=== PATIENT | female | born 1960 | race Caucasian/White ===

== ENCOUNTER → 2021-10-26 | Outpatient (CLI) | payer MEDICARE, OTHER, SELFPAY ==
--- NOTE | 2021-10-26 10:05 | PR.ITP_ITS ---
General Information2 - General Information Admitting Diagnosis: PRIMARY PULMONARY HTN, PRE-LUNG TXP @ [facility] Gold Classification:: GOLD 4: Very Severe - PFT FEV1:: 1.43 - 64% predicted FVC:: 2.25 - 79.4% predicted FEV1/FVC%:: 64 - 83% predicted - Personal Learning Style/Barriers Personal Learning Style:: Audio/Visual, Written Barriers to Learning: Vision impaired Stage of change r/t lifestyle modifications: Contemplation Educational Classes CT: Living with Chronic Lung Disease: Initial Assessment, Breathing Retraining: Initial Assessment, Exercise: Initial Assessment, Energy Conservation: Initial Assessment, Airway clearance: Initial Assessment - Education/Goals Individual Counseling: Initial Assessment: Sedentary Lifestyle CT Patient Goals: Increase muscle strength: Initial Assessment, Experience less dyspnea: Initial Assessment, Improve energy level: Initial Assessment, Participate in home exercise: Initial Assessment, Improve the ability to cope with ADLs: Initial Assessment, Improve knowledge of lung disease: Initial Assessment, Understand how to use medications: Initial Assessment, Increase knowledge of oxygen use: Initial Assessment, Control panic/anxiety: Initial Assessment, Improve diet and nutrition: Initial Assessment, Improve my quality of life: Initial Assessment, Reduce Stress/relaxation techniques: Initial Assessment Exercise - Initial Assessment - Visit Date of Eval: 10/26/21 Session Number:: 0 - pre-pulm rehab evaluation - Problem/Goals Problems: Deconditioning, No regular exercise, Knowledge deficit exercise guidelines Goals:: Aerobic exercise 30-60 mins x 12 weeks [36 sessions] - Functional Capacity Test Number of feet walked: 800 Lowest SPO2 %: 93 - Physician Prescribed Exercise Modalities: Treadmill, Airdyne, NuStep Frequency (days/week): 3 Duration (Minutes):: 30-45 Intensity: 60-80% of age predicted maximum heart rate reserve Current METSs:: 2.0 Target HR:: 110 - 94-110 THRR Resting Blood Pressure: 137/48 EKG Type: Sinus Rhythm W/premature atrial complex - Plan Plan and Plan to Review:: Benefits of exercise, Core components of exercise, How to measure dyspnea level, How to monitor dyspnea level, Exercise intensity, Exercise safety guideline, Home exercise guidelines, Anjel: 3-4/11-13 Nutrition/Wt Mgmt - Initial - Visit Date of Eval: 10/26/21 Session Number:: 0 - pre-pulm rehab evaluation - Problems/Goals Goals: BMI 21-25 - Weight Management Admit Height:: 5 ft 1 in Admit Weight:: 103 lb - Risk malnutrition Admit BMI:: 19.4 - Intervention Referral to dietitian:: Yes - Risk Malnutrition Will attend diet classes:: Yes Intervention/Plan: Instruct on ideal BMI & set weight loss goal w/patient - Plan Nutrition Plan: Yes Review BMI or WC & identify target wt & strategies for wt control, Yes Nutrition education class:, Yes Education re: Need for ongoing weight monitoring Psychosocial - Initial Assess - Visit Date of Eval: 10/26/21 Session Number:: 0 - pre-pulmonary rehab evaluation - Problems/Goals History of Emotional Disorders: Anxious, Depression Psychosocial Goals: 1. Patient is free from overwhelming symtoms of depression (or anxiety, 2. Identifies personal stressors & states the strategies for managing, 3. Identifies activities to decrease isolation and/or symptoms of, 4. Improved psychosocial coping skills. Self-reported stressors: Medical/Health - Psychosocial Test Tool Used:: Pulmonary QOL, PHQ-9 Questionnaire - Referral to Behavioral Health PS - Interventions: Yes Attend Stress Management Classes, No Referral to Behavioral Health if PHQ-9 score >9:, No Referral to [facility], No Referral to Physician if PHQ-9 if score is 5-9: - Intervention/Plan: See List Interventions/Plan:: Assess stressors,coping strategies & signs of derpression on admission, Instruct/assist pt to develop coping & personal stress Mgt strategies, Instruct patient to recognize signs & symptoms of depression, Instruct patient to recog Oxygen & Oxygen Titration Init - Visit Date of Eval: 10/26/21 Session Number:: 0 - Pre-pulmonary rehab evaluation - Initial Assessment Oxygen on Admission: Oxygen w/activity - 2 to 3 liters wtih activity, Oxygen at HS SpO2:: 92 Patient Reports:: Non-productive cough - usually in the morning - Goal Oxygen & Oxygen Tritration Goals: Uses O2 as Rx'd/safely - Plans Plan: Monitor SpO2 rest & with exercise, Train appropriate O2 use with exercise Reviewed prescribed medications:: Purpose, Schedule, Side effects, Importance of compliance Instruct correct technique/timing & care:: MDI, DPI, Nebulizer Bronchial Hygiene Plan: Controlled cough, Vibratory PEP device, Role of exercise in secretion clearance, Hydration, Hand hygiene, Signs/symptoms to report: Core Components - Initial - Visit Date of Eval: 10/26/21 Session Number:: 0 - pre-pulmonary rehab evaluation - Hypertension Hypertension Diagnosis:: Hypertension ICD-10 I10 BP: 137/48 [employer] Hypertension Guidelines: [place] [employer] Hypertension Guidelines. Normal BP Less than 120/80. Elevated BP 120/80. Hypertension Stage 1: BP 130-139/80-89. Hypertesnion Stage 2: BP 140 or higher/90 or higher. Hypertension Crisis: BP higher than 180/120 Blood Pressure: 137/48 Outcomes/Goals: Able to verbalize/achieve optimal blood pressure <130/80, Incorporates diet changes & exercise for blood pressure control by DC - Tobacco - Initial Assessment Tobacco Program Goals: Complete smoking cessation. Attend education classes. Improve Knowledge Test score Tobacco Use: Non-smoker Years Smokin Do you use smokeless tobacco?: No Smoking Cessation Referral:: No Individual Education/Counseling:: No Education Schedule Given:: Yes Gave Education Materials For:: Pulmonary Disease, Risk Factors, Breathing Techniques, Medical Compliance, Pulmonary A&P, Exacerbation Signs & Symptoms, Stress & Relaxation - Exacerbation Mgmt & Airway Clearance Problems:: Needs O2 Rx recommendation Hypoxemia Goals:: Hypoxemia managed Bronchial Hygiene Problems:: Respiratory infection Prevention/Management Goals: Pt demonstrates effective cough, effective secretion clearance., Pt describes signs and symptoms of infection. Patient Reports:: Non-productive cough - usually in the morning Plan: Monitor SpO2 rest & with musical instruments assembler correct technique/timing & care:: MDI, DPI, Nebulizer, Return demo use of inhaler Bronchial Hygiene Plan: Controlled cough, Vibratory PEP device, Hydration, Hand hygiene, Signs/symptoms to report: - Medication Medications: Yes MDI, Yes DPI, Yes NEB Reviewed prescribed medications:: Purpose, Schedule, Side effects - Diabetes Diabetes:: No - Heart Failure Ejection fraction %:: 65 Documenting weight daily for CHF: No Core Components - 30 DAYS Core Components - 60 DAYS Core Components - 90 DAYS Core Components - Final Patient Health Questionnaire Initial Assessment 1. Little interest or pleasure in doing things: Several days 2. Feeling down, depressed, or hopeless: Several days 3. Trouble falling or staying asleep, or sleeping too much: Nearly every day 4. Feeling tired or having little energy: Nearly every day 5. Poor appetite or overeating: Nearly every day 6. Feeling bad about yourself -- or that you are a failure or have let yourself or your family down: Several days 7. Trouble concentrating on things, such as reading the newspaper or watching television: Not at all 8. Moving or speaking so slowly that other people could have noticed. Or the opposite - being so fidgety or restless that you have been moving around a lot more than usual: Not at all 9. Thoughts that you would be better off , or of hurting yourself in some way: Not at all How difficult have these problems made it for you to do your work, take care of things at home, or get along with other people?: Very difficult Total Score: 12 Knowledge Questionaire (BCKQ) - Information Information: [place] COPD Knowledge Questionnaire (BCKQ) This questionnaire is designed to find out what you know about your lung problem. It should be completed without help form anyone else. This usually takes between 10 and 20 minutes. Your answers will help us to find out what information you need to help you to understand and manage your lung condition. Casper the morongo which you think is the correct answer. - Questions a. In COPD the word chronic means it is severe: True b. COPD can only be confirmed by breathing tests: Don't know c. In COPD ther is usually gradual worsening over time: Don't know d. In COPD oxygen levels in the blood are always low: Don't know e. COPD is usually in people less than 40 years old: Don't know Felipe than 80% of COPD cases are caused by cigarette smoking: True b. COPD can be caused by occupational dust exposure: Don't know c. Longstanding asthma can develop into COPD: Don't know d. COPD is commonly an inherited disease: Don't know e. Women are less vunerable to the effects of cigarette than men: Don't know a. Swelling of the ankles is common in COPD:: Don't know b. Fatigue [tiredness] is common in COPD: Don't know c. Wheezing is common in COPD: True d. Crushing chest pain is common in COPD: Don't know e. Rapid weight loss is common in COPD: Don't know a. Severe breathlessness prevents travel by air: Don't know b. Breathlessness can be worsened by eating large meals: Don't know c. Breathlessness means that your oxygen levels are low: Don't know d. Breathlessness is a normal response to exercise: Don't know e. Breathlessness is primarily caused by a narrowing of the bronchial tubes: True a. Coughing phlegm is a common symptom in COPD: True b. Clearing phlegm is more difficult if you get dehydrated: Don't know c. Bronchodilator inhalers can help clear phlegm: Don't know d. Phlegm causes harm if swallowed: Don't know e. Clearing phlegm can be assisted by breathing exercises: Don't know a. Chest infections often cause coughing of blood: Don't know b. Chest infection phlegm usually becomes coloured (ylw/grn): True cExerbations (episodes of worsening) can occur in the absence of chest infection: Don't know d. Chest infections are always accompanied by a high temperature: Don't know e. Steroid tablets should be taken whenever there is an exacerbation: Don't know aWalking excercises better than breathing to improve fitness: True b. Exercise should be avoided as it strains the lungs: Don't know c. Exercise can help maintain your bone density: Don't know d. Exercise helps relieve depression: Don't know e. Exercise should be stopped if it makes you breathless: Don't know a. Stopping smoking will reduce the risk of heart disease: Don't know b. Stopping smoking will slow down further lung damage: Don't know c. Stopping smoking is pointless as the damage is done: Don't know d.Stopping smoking usually results in improved lung function: True eNicotine replacement therapy only available on prescription: Don't know a. A flu jab is recommended every year: True b. You can get flu from having a flu jab: Don't know c. You can only have a flu jab if you are 65 or over: Don't know d. A pneumonia jab protects against all forms of pneumonia: Don't know e.You can have a pneumonia jab and a flu job on the same day: Don't know a. Bronchodilators act quickly (within 10 minutes): Don't know b. Both short & long acting bronchodilators can be taken on the same day: Don't know c. Spacers (volumatic,nebuhaler,serochamber)should be dried w/atowel after washing: Don't know d. A spacer device increases the medication to the lungs: Don't know e. Tremor may be a side effect of bronchodilators: Don't know a. To be effective, the course should last at least 10 days: Don't know b. Excessive use of antibiotics can cause resistant bacteria (germs): Don't know c. Antibiotics will clear all chest infections: Don't know d. Antibiotic treatment is necessary for an exacerbation (worsening) however mild: True e. Seek advice if antibiotics cause severe diarrhoea: Don't know a. Steroid tablets help strengthen muscles: Don't know b. Steroid tablets should be avoided if there is a chest infection: Don't know c. The risk of long-term side effects due to steroids is less w/short courses then w/continous treatment: Don't know dIndigestion is common side effect from using steroid tablet: Don't know e. Steroid tablets can increase your appetite: True a. Inhaled steroids should be stopped if you are given steroid tablets: Don't know bSteroid inhalers can be used for rapid relief breathlessnes: True c. Spacer devices reduce the risk of getting thrush in the mouth: Don't know d.Steroid inhaler should be taken before your bronchodilator: Don't know e. Inhaled steroids improve lung function in COPD: Don't know COPD Knowledge Test Total Score:: 8 COPD Assessment Test [CAT] - Questions Never cough = 0, Cough all the time = 5: 1 No phlegm = 0, Chest full of phlegm = 5: 1 No chest tightness = 0, Chest very tight = 5: 0 No breathless w/exertion = 0, Very breathless w/exertion = 5: 4 No limitations w/activity = 0, Very limited w/activity = 5: 4 Confident leaving home = 0, Not at all confident = 5: 1 Sleep soundly = 0, Don't sleep soundly = 5: 1 Lots of energy = 0, No energy at all = 5: 4 Total CAT score:: 16 Self-Efficacy Initial Assessment We would like to know how confident you are in doing certain activities. Please select your confidence level for:: Select your confidence level for the fol [facility] using the scale 1-10 where 1 is not at all confident and 10 is totally confident. Your score is the average of all 6 responses. Fatigue: How confident are you that you can keep the fatigue caused by your disease from interfering with the things you want to do? Select Number: 1 Physical Discomfort or Pain: How confident are you that you can keep the physical discomfort or pain of your disease from interfering with the things you want to do? Select Number: 1 Emotional Distress: How confident are you that you can keep the emotional distress caused by your disease from interfering with the things you want to do? Select Number: 1 Other Symptoms or Health Problems: How confident are you that you can keep other symptoms or health problems from interfering with the things you want to do? Select Number: 1 Different Tasks and Activities: How confident are you that you can do the different tasks and activities needed to manage your health condition so as to reduce your need to see a doctor? Select Number: 1 Medication: How confident are you that you can do things other than just taking medication to reduce how much your illness affects your everyday life? Select Number: 1 Total Score:: 1 Nutrition Survey - Nutrition Survey Initial Have you lost >10 lbs over the past 2 months without trying?: Yes Are you following a special diet at home for diabetes, low fat, or low salt?: No Are you interested in meeting with a dietitian for help understanding your diet?: No Do you eat less than 3 meals a day?: Yes Do you eat fatty meats (mike, sausage, ribs, etc), fried foods, desserts, large amounts of salad dressings, margarine, butter, or cheese most days?: Yes Do you have food allergies? [Enter types in comment field]: No Do you eat in restaurants more than 3 times a week?: No Do you season food with salt, seasoning salt, or garlic salt?: No Do you used canned, boxed, frozen meals, or soups, seasoning packets?: Yes Total Score:: 4
--- NOTE | 2021-10-26 10:06 | PR.HP_ITS ---
History of Present Illness Arrival date:: 10/26/21 - Arrival time:: 10:07 Date of Referral:: 09/24/21 Date of Evaluation: 10/26/21 Referring Physician: DR. PATRICIA ZHENG MD [facility] PULMONARY CRITICAL CARE MEDICINE Primary Diagnosis: SEVERE COPD, PULMONARY HTN PRE-LUNG TXP. History of Present Illness: PULM HTN, COPD, PRE-LUNG TRX @ [facility] PULMONARY CRITICAL MEDICINE mMR Breathless Scale: When is the patient short of breath? Y/N Grade: Description of Breathlessness: 0 I only get breathless with strenuous exercise. 1 I get short of breath when hurrying on level ground or walking up a slight hill. 2 On level ground, I walk slower than people of the same age because of breathless, or have to stop for breath when walking at my own pace. 3 I stop for breath after walking 100 yards or after a few minutes on level ground. 4 I am too breathless to leave the house or I am breathless when dressing. Respiratory Problems: Yes: Fatigue, Able to Speak in Full Sentences, Dizziness, Hoarseness, Anxiety, Dyspnea at Rest, Dyspnea with Activity No: Limited Range of Motion, Wheezing, Dyspnea Lying Down Flat, Cough with Secretions - Secretions Thin:: Yes Cough:: Yes AM: Yes Hx of Sleep Apnea: No Do you snore loudly (louder than talking or can be heard through closed doors)?: Yes Do you often feel tired/ fatigued/ sleepy during daytime?: Yes Has anyone observed you stop breathing during sleep?: No History of Hypertension (for STOP score): Yes STOP Results: Positive Home Medications: Home Medications acetaminophen [Tylenol] 650 mg PO Q6H PRN 10/26/21 albuterol sulfate 2 puff INHALATION Q6H PRN 10/26/21 epoprostenol [Veletri] mg CONTINUOUS IV INFUSION 10/26/21 ferrous sulfate 324 mg PO DAILY 10/26/21 fluticasone propionate 2 spray INTRANASAL DAILY 10/26/21 ibandronate 150 mg PO QMONTH 10/26/21 levothyroxine [Synthroid] 75 mcg PO DAILY 10/26/21 [id number]-vuhqxwmh-gqmppcy [Creon] 1 cap PO TID 10/26/21 ondansetron HCl [Zofran] 4 mg PO Q8H PRN 10/26/21 oxygen-air delivery systems 10/26/21 polyethylene glycol 3350 [Miralax] 17 g PO DAILY 10/26/21 potassium chloride 20 meq PO BID 10/26/21 sildenafil (pulm.hypertension) [Revatio] 20 mg PO TID 10/26/21 tiotropium bromide 2 puff INHALATION DAILY 10/26/21 torsemide 20 mg PO DAILY 10/26/21 trazodone [Desyrel] 100 mg PO QHS 10/26/21 Allergies/Adverse Reactions: Allergies No Known Allergies Allergy (Verified 10/26/21 10:30) Medical Utilization Do you use a peak flow meter at home?: No Do you use a spacer device with your inhalers?: No Number of hospital visits in the last year?: 2 - 30 days at [facility] w/acute pancreatitis; 1 week last month for pancreatitis Do you see your physician on a regular schedule?: Yes How often?: PCP 3months, 3-6 months @[facility], becoming more often Comments:: WIll be at the [facility] for 1-week for testing for pre-transplant list. COming closer to being placed on the list, have been going more often for testing. Advanced Directives - Advanced Directives Power of City Planning Engineer: Yes - POA for Toni would be her Living Will: Yes Advance Directives Information Provided: No Advance Directives on File: No DNR Order?:: No - MOLST See MOLST form: No Past Medical History - Covid-19 Screening Fever: No Unexplained muscle aches: No Current respiratory symptoms: No Upper respiratory infections symptoms: No Gastro-intestinal symptoms: Yes - Acute Pancreatitis Bhd-Wftn-Vzrzvj symptoms: No Has tested positive for COVID-19 in last 30 days: No Date of testin10/26/21 - Have had the two series of the COVID vaccine but not the booster. Had contact w/person w/symptoms or Covid-19 (+) last 14 days: No Has High Risk Exposures ID'd by Health dept/Inf Control team: No 65 years or older:: No Lives in Assisted Living facility:: No Has a chronic lung disease or moderate to severe asthma:: Yes Has a serious heart condition:: No Immunocompromised:: Yes Severely obese (Body Mass Index of 40 or higher):: No Diabetic:: No Has chronic kidney disease undergoing dialysis:: No Has liver disease:: No Medical History: Past Medical History (Last Updated 10/26/21 @ 10:36 by Yobany Mercedes, MADHU, [employer]PARTMENT MANAGER, BS) Anxiety and depression F41.9, F32.A Chronic back pain M54.9, G89.29 Chronic fatigue R53.82 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 Former smoker, stopped smoking many years ago Z87.891 11/14/2020 HFrEF (heart failure with reduced ejection fraction) I50.20 LVEF65% HPTH (hyperparathyroidism) E21.3 Hyperthyroidism E05.90 Pancreatitis, acute K85.90 severe-chronic Pre-transplant evaluation for lung transplant Z01.818 Primary pulmonary hypertension (PPH) I27.0 Raynauds disease I73.00 Surgical History: Past Surgical History (Last Updated 10/26/21 @ 10:59 by Yobany Mercedes, MADHU, [employer] DEPARTMENT MANAGER, BS) History of biopsy Z98.890 breast and lymphnoids History of section Z98.891 History of cholecystectomy Z90.49 - Current/ Previous Services Pulmonary Rehab:: No Social History - Smoking History Smoking Status: Former smoker Years Smokin Packs Smoked per Day: 20 Hx Smoking Cessation Date: 11/13/20 Hx Tobacco Use: Yes Hx Smoking Exposure: Yes - Alcohol Use Alcohol Usage: No - Substance Abuse Hx Substance Use: No - Occupation Occupation (List type of work in comments):: Unemployed - Hobbies, Recreation, Social Activities Hobbies: Other Recreational Activities: I am able to engage in a few activities Functioning ADL/IADL - Current Ability Current Ability: Independent Self-Care (e.g.,grooming, dressing, & bathing), Independent Ambulation, Independent Transfer, Independent Household tasks (e.g., light meal prep, laundry, shopping) - Pt Functioning Prior to Problem Prior Functioning: Self-Care (e.g.,grooming, dressing, & bathing): Independent, Ambulation: Independent, Transfer: Independent, Household tasks (e.g., light meal prep, laundry, shopping): Independent Social Environment - Status Marital Status: - Current Living Arrangements Living Environment:: Spouse - Children How many children do you have?: 1 - 3 Do any of your children live nearby?: Yes - 1/2 hour - Safety Do you feel safe in your surroundings?: Yes - Assistance Do you need any assistance at home?: Friend helps out when needed. Review of Systems Review of Systems: Right click = Denies (Slash). Left click = Reports ([place]omb) Respiratory: Reports: Cough, SOB upon Exertion, Wheezing, Dizziness/Lightheadedness, Fatigue, Sleep, Normal - takes sleep aid at night. Denies: SOB at Rest, Sputum production, Appetite, Normal Is Patient Pain Free?: No Pain Location: back, other - pancreatitis flared-up called Dr. Starr at [facility] for appointment. Pain Level: 02/27 Risk Factor Assessment - Vital Signs Temperature: 97.9 F Pulse Rate: 84 Pulse Rhythm: Regular Respiratory Rate: 18 Pulse Ox: 93 Blood Pressure: 137/48 - Diabetes Nutrition Referral for Diabetes: No - Obesity Height: 5 ft 1 in Weight:: 103 lb Weight in Pounds: 103.0 lbs Weight Source: Stated by Patient Body Mass Index (BMI): 19.4 Nutritional Referral for Obesity: Yes - Referral for Risk of Malnutrition - Physical Activity Physical Inactivity: None - Risk Stratification Risk Guidelines: Lowest Risk: Risk Factor for Smoking, Risk Factor for Dyslipidemia, Risk Factor for Diabetes, Risk Factor for Obesity - Risk of Malnutrition, Risk Factor for Depression, Moderate Risk: Risk Factor for Hypertension, Highest Risk: Risk Factor for Sedentary Lifestyle Motivation - Motivation to Participate On a scale of 1 to 10, how prepared are you to commit to attending program?: 8 What do you see as barriers to successfully being able to complete the program?: chronic back pain and pancreatitis What do you see as the benefits of succesfully completing the program? In other words, what do you hope to get out of participating in the program?: increae stamina, feel better, help with my appetite Are there issues you are dealing with that will interfere with completing the program?: ongoing chronic back pain and pancreatitis Do you have a spouse or signficant other, family or friends who will help support you to complete the program?: yes Diagnostic Data Review - Pulmonary Function Test FEV1:: 1.43 - 64% predicted FVC:: 2.25 - 79.4% predicted FEV1/FVC%:: 64 - 83% predicted Gold Classification: Gold class IV(very severe COPD)with FEV1/FVC <70, FEV1 <30% predicted
[2021-10-26 11:07] VITALS: BP 137/48; PULSE 84; RESP 18; TEMP 36.6; O2SAT 93; BMI 19.4
[2021-10-26 11:55] VITALS: BP 137/48; O2SAT 92; BMI 19.4
== END | disposition home or self-care (01) ==
LOC: PR 10:02
PROVIDERS: PCP Family Medicine
DX: J43.9 Emphysema, unspecified (principal); I27.0 Primary pulmonary hypertension; I50.20 Unspecified systolic (congestive) heart failure

== ENCOUNTER 2021-11-16 13:00 | Outpatient (RCR) | payer MEDICARE, OTHER, SELFPAY | END 2021-11-17 23:59 | LOC: PR 13:00 | PROVIDERS: PCP Family Medicine | DX: I27.20 Pulmonary hypertension, unspecified (principal) | CPT/HCPCS: 97150; G0239 ==

== ENCOUNTER 2021-11-19 07:24 | Outpatient (RCR) | payer MEDICARE, OTHER, SELFPAY ==
--- NOTE | 2021-11-26 07:40 | PR.ITP_ITS ---
Exercise - 30-Day Assessment - Visit Date of Eval: 11/26/21 Session Number:: 4 - Patient has missed 4 sessions to date. - Physician Prescribed Exercise Modalities: Treadmill, NuStep, SciFit Frequency (days/week): 3 Duration (Minutes):: 38 Intensity: 60-80% of age predicted maximum heart rate reserve Aerobic Exercise [30-60 min 3-7x/week]:: Not progressing Anjel-13 Current METSs:: 2.0 Target HR:: 110 - THRR 94-110 Current RPD:: 3 Maximum Exercise HR:: 93 Resting Blood Pressure: 88/58 Maximum Exercise Blood Pressure: 112/72 Minimum SpO2 with exercise: 93 EKG Type: SR to sinus tach w/rare PVCs Current Minutes of Exercise: 38 - Home Exercise Home Exercise:: No Nutrition/Wt Mgmt - 30-Day - Visit Date of Eval: 11/26/21 Session Number:: 4 - Weight Management Weight Assessment:: BMI 21 to 25 Weight Goals Progress:: Progressing Psychosocial - 30-Day - Visit Date of Eval: 11/26/21 Session Number:: 4 - Problems/Goals History of Emotional Disorders: Anxious, Depression Psychosocial Goals: 1. Patient is free from overwhelming symtoms of depression (or anxiety, 2. Identifies personal stressors & states the strategies for managing, 3. Identifies activities to decrease isolation and/or symptoms of, 4. Improved psychosocial coping skills., 5. Verbalizes coping strategies., 6. Adequate treatment of depression., 7. Improved Q.O.L. Self-reported stressors: Medical/Health, Recent Illness - Psychosocial Test Tool Used:: Pulmonary QOL - Plan Interventions/Plan:: Assess stressors,coping strategies & signs of derpression on admission, Instruct/assist pt to develop coping & personal stress Mgt strategies, Instruct patient to recognize signs & symptoms of depression, Instruct patient to recog Core Components - Initial Core Components - 30 DAYS Core Components - 60 DAYS Core Components - 90 DAYS Core Components - Final Patient Health Questionnaire 30-Day Re-eval Assessment 1. Little interest or pleasure in doing things: Several days 2. Feeling down, depressed, or hopeless: Several days 3. Trouble falling or staying asleep, or sleeping too much: Nearly every day 4. Feeling tired or having little energy: Nearly every day 5. Poor appetite or overeating: Nearly every day 6. Feeling bad about yourself -- or that you are a failure or have let yourself or your family down: Several days 7. Trouble concentrating on things, such as reading the newspaper or watching television: Not at all 8. Moving or speaking so slowly that other people could have noticed. Or the opposite - being so fidgety or restless that you have been moving around a lot more than usual: Not at all 9. Thoughts that you would be better off , or of hurting yourself in some way: Not at all How difficult have these problems made it for you to do your work, take care of things at home, or get along with other people?: Very difficult Total Score: 12 Knowledge Questionaire (BCKQ) - Information Information: [place] COPD Knowledge Questionnaire (BCKQ) This questionnaire is designed to find out what you know about your lung problem. It should be completed without help form anyone else. This usually takes between 10 and 20 minutes. Your answers will help us to find out what information you need to help you to understand and manage your lung condition. [place] the [place] which you think is the correct answer. Self-Efficacy Nutrition Survey
[2021-11-26 08:05] VITALS: BP 88/58; O2SAT 93
== END 2021-12-18 23:59 ==
LOC: PR 07:24
PROVIDERS: PCP Family Medicine
DX: I27.20 Pulmonary hypertension, unspecified (principal); Z87.891 Personal history of nicotine dependence
CPT/HCPCS: 97150; G0239

== ENCOUNTER 2021-12-26 15:00 | Outpatient (CLI) | payer MEDICARE, OTHER, SELFPAY ==
--- NOTE | 2021-12-26 15:15 | PET_ITS ---
PROCEDURE: WHOLE BODY PET/CT SCAN, MID SKULL TO MID THIGH REASON FOR EXAM: Squamous cell carcinoma of the vulva, initial staging COMPARISON EXAMINATION: None. TECHNIQUE: Following the intravenous administration of 13.48 mCi of F-18 FDG, multiplanar imaging acquisitions of the neck, chest, abdomen/pelvis to the mid thigh, obtained at 1 hour post radiopharmaceutical administration. Interpretation is with co-registeration of similar anatomic distribution of CT. Findings: Normal and physiologic distribution of radioisotope identified in the expected intensity of the hepatic and splenic parenchyma, urinary tract and gastrointestinal structures. There is gross anatomic distribution of the intracranial contents. INDEX LESION SIZE SUV INTERPRETATION: 1. Focal activity of the perineum measures 1.1 x 1.1 cm on image 245 of series 301 with SUV 12.2, potentially representing soft tissue mass/neoplasm versus urine contamination. 2. Rounded focal induration of the left inguinal region measuring 1.6 x 1.8 cm on image 442 of series 201 with peripheral increased FDG activity (SUV 3.5). 3. Mildly enlarged left iliac chain lymph node measuring 0.8 x 1.2 cm on image 413 of series [address] portion of the exam: Left jugular CEJA catheter is seen with tip extending to the upper right atrium. There are interstitial fibrotic changes of the lungs. No pulmonary nodule/mass. There is no demonstrated pleural abnormality. Heart is mildly enlarged. Moderate volume pericardial effusion. Normal mediastinum. Normal hilar regions. There is prominence of the pulmonary hilar arteries without peripheral pulmonary vascular congestion, suggesting pulmonary hypertension. There is atherosclerotic calcification of the aortic arch with tortuosity and elongation of the aortic arch and descending thoracic aorta. Diffuse dilation of the left more than right intrahepatic bile ducts. There is non-visualization of the gallbladder, which may be secondary to either contraction or a prior cholecystectomy. Normal spleen. There are pancreatic calcifications in the distribution of the ducts consistent with chronic pancreatitis. Normal bilateral adrenal glands. Normal right kidney. Normal left kidney. Normal visualized stomach. Normal small intestine. There are multiple colonic diverticula consistent with diverticulosis. There is non-visualization of the appendix. There is diffuse atherosclerotic calcification of the abdominal aorta, without a demonstrated aneurysm. Normal inferior vena cava. Normal urinary bladder. There are diffuse degenerative changes of the visualized lumbar spine. PET/PET/CT Tumor Base -Thigh Init IMPRESSION: ABNORMAL EXAMINATION. 1. Focal activity of the perineum could relate to patient''s known vulvar neoplasm versus urine contamination. 2. Left iliac chain lymph node meets borderline criteria for viable neoplasm. 3. Rounded focal induration of the left inguinal region with mild FDG activity likely related to patient''s recent joan excisional biopsy. 4. Focal activity of the perineum could relate to patient''s known vulvar neoplasm versus urine contamination. 5. Left more than right intrahepatic biliary dilation, limiting evaluation. Evaluation with ultrasound and/or MRI recommended, if no comparison studies available. 6. Cardiomegaly, moderate pericardial effusion. Pulmonary hypertension. 7. Chronic changes, as detailed above. Electronically Signed: Stephan Mckeon MD ([place]) at 15:03 EDT ,
== END 2021-12-26 23:59 | disposition home or self-care (01) ==
LOC: ONC 15:01 → RAO 12-31 13:30
PROVIDERS: PCP Family Medicine
DX: C53.8 Malignant neoplasm of overlapping sites of cervix uteri (principal)
CPT/HCPCS: 78815; A9552

== ENCOUNTER 2022-02-15 10:36 | Day surgery (SDC) | payer MEDICARE, OTHER, SELFPAY ==
[2022-02-15] VITALS (7 sets, daily range): BP systolic 94–131; BP diastolic 54–68; PULSE 59–77; RESP 16–20; TEMP 36.8–37.3; O2SAT 93–100; BMI 20.4
[2022-02-15] MEDS: Lactated Ringers 1,000 ML 15 ML IV (11:10)
--- NOTE | 2022-02-15 12:12 | HP.PCM_ITS ---
History and Physical Date of Admission: 02/15/22 Date of Service:? 02/12/22 MR#:[id number] Acct:[id number] Name:SCOTTY ANGEL Rep #:[id number] :1960 ProviderDr. Brandy Luna MD Age/Sex:? 61/F Location: [facility] Status: Signed Intake Vital Signs ? 02/12/2209:56 Height 5 ft 1 in Weight: 112 lb BMI 21.1 BP 90/56 L Blood Pressure Location Rt brachial Position Sitting Respiration 16 Pulse 69 Pulse Source Monitor Temp 97.2 F L Temp Source Temporal Pulse Oximetry (%) 97 Oxygen Delivery Method room air Intake Visit Reasons:?PORT PLACEMENT Chief Complaint: Port placement Boots And Shoes Supervisor Required: No Accompanied by: Allergies No Known Allergies Allergy (Verified 02/13/22 11:20) Medications acetaminophen 325 mg tablet (Tylenol) 650 mg PO Q6H PRN Pain 10/26/21 [History Confirmed 02/13/22] albuterol sulfate 90 mcg/actuation aerosol inhaler 2 puff inhalation Q6H PRN Dyspnea 10/26/21 [History Confirmed 02/13/22] epoprostenol 1.5 mg intravenous solution (Veletri) 1.5 mg continuous IV infusion DAILY PULMONARY HTN 10/26/21 [History Confirmed 02/13/22] ferrous sulfate 324 mg (65 mg iron) tablet,delayed release 324 mg PO DAILY 10/26/21 [History Confirmed 02/13/22] ibandronate 150 mg tablet 150 mg PO QMONTH 10/26/21 [History Confirmed 02/13/22] levothyroxine 75 mcg tablet (Synthroid) 75 mcg PO DAILY 10/26/21 [History Confirmed 02/13/22] ondansetron HCl 4 mg tablet 4 mg PO Q8H PRN Nausea And Vomiting 10/26/21 [History Confirmed 02/13/22] oxygen-air delivery systems? 10/26/21 [History Confirmed 02/12/22] potassium chloride 20 mEq tablet,extended release 20 meq PO BID 10/26/21 [History Confirmed 02/13/22] torsemide 20 mg tablet 20 mg PO DAILY 10/26/21 [History Confirmed 02/13/22] sertraline 50 mg tablet 50 mg PO DAILY 12/31/21 [History Confirmed 02/13/22] amitriptyline 25 mg tablet 25 mg PO PRN PRN Sleep 01/07/22 [History Confirmed 02/13/22] oxycodone 5 mg tablet 5 mg PO Q6H PRN Pain 01/07/22 [History Confirmed 02/13/22] methocarbamol 500 mg tablet 500 mg PO TID 02/13/22 [History Confirmed 02/13/22] PFSH Medical History?(Updated 02/13/22 @ 17:[address] Sohail Raza MD) Acute hypotension Alcohol use Anxiety and depression Arthritis Chronic back pain Chronic cough Chronic fatigue COPD (chronic obstructive pulmonary disease) with emphysema Easy bruising Former smoker, stopped smoking many years ago HFrEF (heart failure with reduced ejection fraction) History of echocardiogram History of pain when walking History of stress test Hospice care patient HPTH (hyperparathyroidism) Hyperthyroidism Low iron Marijuana use Menopause On home oxygen therapy Pancreatitis, acute Pre-transplant evaluation for lung transplant Primary pulmonary hypertension (PPH) Pulmonary hypertension Rash Raynauds disease Shortness of breath on exertion Vulvar lesion Wears dentures Wears glasses Wears hearing aid Surgical History? History of biopsy History of section History of cholecystectomy History of dilation and curettage History of tooth extraction Family History? Mother Small cell lung cancerFather Lung cancer Social History? Smoking Status:? Former smoker quit date: 11/14/20 Tobacco: How many years used:? 30 how long ago did patient quit smoking:? 1 year alcohol intake:? never substance use type:? does not use HPI HPI HPI: SCOTTY SEWELL, is a 61 F who presents to the office today for Port placement for vulvar cancer.? Pt has had a beltran catheter for last 26 years mostly RIJ until the last one for her pulmonary HTN medication infusion.? Pt has poor peripheral veins. Plan to start chemo, next friday. ROS General General: Yes weight change and fatigue; No appetite, colon cancer or breast cancer HEENT HEENT: No difficulty swallowing, eye injury, eye surgery, swollen glands or hoarseness Endo Endocrine: Yes thyroid disease; No diabetes mellitus, thyroid cancer, Hair loss, heat intolerance or cold intolerance Skin Skin: Yes rash; No changing moles Musc Musculoskeletal: Yes back problems and arthritis; No rheumatoid arthritis, gout or joint pain Cardio Cardiovascular: No murmur, pacemaker, heart disease, atrial fibrillation, high blood pressure, heart attack, heart stent, palpitations, shortness of breat with exertion or chest pain Psych Psychiatric: No depression, anxiety or hearing voices Resp Respiratory: Yes shortness of breath, No sleep apnea, No cough, Yes COPD, No asthma, No emphysema and No wheezing Gastro Gastrointestinal: No abdominal pain, No nausea or vomiting, Yes diarrhea, No constipation, No blood in stool, No acid reflux, No hemorrhoids, No ulcers, No gallbladder problem and No black,tarry stools Edi Hematologic: No blood thinners, No blood disorders, No bleeding, No anemia and No blood clots Neuro Neurologic: No confusion Exam Const General: cooperative, healthy appearing and no acute distress HENMT Head: normal to inspection Chest Other: Left chest beltran catheter in place--well healed previous incisions/scars to right chest. Resp Effort & Inspection: normal respiratory effort Cardio Rate: regular rate GI Inspection: non-distended Palpation: soft, no guarding, no hernias and nontender Skin General: no rashes or lesions noted Neuro General: patient oriented x3 Extrem General: no clubbing, cyanosis or edema Psych Affect: normal affect Assessment and Plan Assessment and Plan (1) Encounter for insertion of venous access port: ?Status:?Acute (2) Primary vulvar cancer: ?Status:?Acute ?Comment: Vulvar cancer diagnosed with at at least FIGO stage II (cT2 N0 M0) SCC of the vulva? S/P biopsy at [facility] on 02/04/2022. Discussed disease status, treatment with Cisplatin weekly with Radiation since she cannot have surgery. Also discussed risks, benefits and side effects. She agrees to proceed. (3) Primary pulmonary hypertension (PPH): ?Status:?Acute Plan Due to patient's primary pulmonary hypertension she has had multiple Beltran catheters over the last 26 years most of been on the right this time they did switch to the left IJ. I have discussed above with the patient- Port-a-Cath placement.? Right IJ Patient has been counseled as to the risks/benefits of the procedure. I have explained the risks of the surgery, including but not limited to: infection, bleeding, injury to any blood vessels/nerves, injury to lungs (such as pneumothorax or hemothorax and need for chest tube), not having any access, nonfunctioning of port due to thrombosis, infection of port, etc.? the patient understands and agrees to proceed. I have answered all the patient's questions to the patient?s satisfaction and the patient has no further questions. Brandy Luna M.D. Pager: [phone] [facility] [address] [place] [address], [address] [place] [address] Office: [phone] Coding Level of Care Code Off vis,new,level 3 Diagnoses Encounter for insertion of venous access port? Z45.2 Primary vulvar cancer? C51.9 Primary pulmonary hypertension (PPH)? I27.0 02/14/22 1558 <Electronically signed by Brandy Luna MD> Date Brandy Luna MD
[2022-02-15] MEDS: Cefazolin 2 GM in 0.9% Normal Saline 100 ML IV (13:19)
[2022-02-15] MEDS: Bupivacaine 0.25% 30 ML Vial (13:35)
[2022-02-15] MEDS: Lidocaine 1% /Epi 1:100 (20ml) 20 ML Vial (13:35)
[2022-02-15] MEDS: oxyCODONE 5 MG Tablet 10 MG PO (14:10)
--- NOTE | 2022-02-15 14:18 | PCM.OPRPT ---
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 Able to gain access to the internal jugular, however unable to advance guidewire past this junction. Then we used Isovue 300--7 cc and saw that there is a chronic occlusion. thus we did switch to try to access the subclavian however the micropuncture kit did show the wire going in the same location and backup the neck. Surgeon: Brandy Luna director of analytical development: Daljit Quintanilla Type of Anesthesia: Local MAC Anesthesiologist: Nadeem Das Special Medications: Ancef 2 g IV x1 Estimated Blood Loss (mL): < 10 cc Description of Procedure: After informed consent was given, the patient was brought to the operating room and placed in the supine position. Appropriate time out protocol was followed. Patient was then given IV conscious sedation for anesthesia. The patient's right upper chest and neck were then prepped with a surgical skin preparation and sterile surgical drapes were placed. After proper landmarks were ascertained, the skin at the upper right chest area was then infiltrated with 1:1 mixture of 1% lidocaine with epinephrine and 0.5% marcaine. A needle trocar was then inserted into the right internal jugular vein with ultrasound guidance-multiple vessels were viewed with u/s and the right IJ was chosen as patient has a left IJ Carrero catheter-- and there was good aspiration of venous blood. A wire was then threaded into the needle trocar however a little ways after the needle and did hit resistance. Fluoroscopy was used to confirm the wires coming back of the neck. Did attempt to use a lower site on the neck to see if this be able to go any different tracks. Still unable to pass the wire. About 7 cc of Isovue-300 was used and found to have a chronic occlusion at the distal right internal jugular. Did then attempt right subclavian with a micropuncture needle. Did get good blood return, was able to initially advance the micropuncture wire but fluoroscopy showed it going up into the neck. Likely this was in the same area and also hit the chronic occlusion. Aborted the port placement. The neck incisions were reapproximated with interrupted subdermal 3-0 vicryl sutures. Steristrips were used for reinforcement of the skin closure at IJ insertion site and a sterile opsite dressings were applied. Also put a pressure dressing at the micropuncture subclavian site. The patient tolerated the procedure well. Complications none
--- NOTE | 2022-02-15 14:30 | RAD_ITS ---
STUDY: X-RAY CHEST REASON FOR EXAM: Female, 61 years old. Attempted RIJ port -- pacu TECHNIQUE: Single AP portable view of the chest. COMPARISON: None. FINDINGS: A left-sided subclavian catheter has been placed. The tip is at the junction of the superior vena cava and right atrium. The lungs are clear and expanded. There is no demonstrated pleural abnormality. Moderate cardiomegaly. Normal mediastinum and dalia. There is prominence of the pulmonary hilar arteries without peripheral pulmonary vascular congestion, suggesting pulmonary hypertension. There is atherosclerotic calcification of the aortic arch with tortuosity. There are diffuse degenerative changes of the visualized thoracic spine. Normal visualized ribs, clavicles, and shoulders. There is no demonstrated abnormality of the visualized soft tissue structures of the upper abdomen. RAD/CXR for Line Placement IMPRESSION: A left-sided subclavian catheter has been placed with the tip at the junction of the superior vena cava and right atrium. Electronically Signed: Attila May MD at 14:48 EDT ,
--- NOTE | 2022-02-15 14:31 | DCINST_ITS ---
Discharge Instructions Diet Discharge Diet: No restrictions Dressing / Incision Call your doctor if your incision/area has: Continuous Slow Oozing, Sudden Increased Bleeding, Increased Pain/ Swelling and Increased Redness Remove Dressing in: 2 days Follow Up Care Test Results: Test results from this visit will be discussed in further detail at your follow- up appointment, if applicable. Discharge Plan Admission Attending Provider: Brandy Luna Primary Care Provider: Datne Starr Discharge Orders/Prescriptions Prescriptions: No Action sertraline 50 mg tablet 50 mg PO DAILY amitriptyline 25 mg tablet 25 mg PO PRN PRN (Reason: Sleep) oxycodone 5 mg tablet 5 mg PO Q6H PRN (Reason: Pain) albuterol sulfate 90 mcg/actuation Hfa Aerosol Inhaler 2 puff INHALATION Q6H PRN (Reason: Dyspnea) (DME) oxygen-air delivery systems Device MISCELLANEOUS acetaminophen [Tylenol] 325 mg Tablet 650 mg PO Q6H PRN (Reason: Pain) torsemide 20 mg Tablet 20 mg PO DAILY ondansetron HCl [Zofran] 4 mg Tablet 4 mg PO Q8H PRN (Reason: Nausea And Vomiting) levothyroxine [Synthroid] 75 mcg Tablet 75 mcg PO DAILY ibandronate 150 mg Tablet 150 mg PO QMONTH ferrous sulfate 324 mg (65 mg iron) Tablet,Delayed Release (Dr/Ec) 324 mg PO DAILY epoprostenol [Veletri] 1.5 mg Recon Soln 1.5 mg CONTINUOUS IV INFUSION DAILY potassium chloride 20 mEq Tablet Extended Release 20 meq PO BID methocarbamol 500 mg Tablet 500 mg PO TID diazepam 5 mg tablet 1 tab PO DAILY PRN (Reason: Anxiety) Label Comments: TAKE 1 TABLET BY MOUTH DAILY BEFORE RADIATION THERAPY (TAKE 30 TO 60 MINUTES BEFORE APPOINTMENT) DO NOT DRIVE FOR 4 HOURS AFTER DOSE Referrals / Follow Up: Dante Starr MD [Primary Care Provider] - Disposition Disposition (needs filled in before D/C Order can be placed): Home, Self Care
== END 2022-02-15 15:39 | disposition home or self-care (01) ==
LOC: SDC 10:37 → AC 10:38
PROVIDERS: PCP Internal Medicine; Referring Provider Surgery; Visit Provider Surgery
PROC: (CPT 36561; principal; 2022-02-15 12:45)
DX: Z45.2 Encounter for adjustment and management of vascular access device (principal); C51.9 Malignant neoplasm of vulva, unspecified; I27.0 Primary pulmonary hypertension; Z53.8 Procedure and treatment not carried out for other reasons; I82.C21 Chronic embolism and thrombosis of right internal jugular vein; J43.9 Emphysema, unspecified; F32.A Depression, unspecified; F41.9 Anxiety disorder, unspecified; Z78.0 Asymptomatic menopausal state; Z79.01 Long term (current) use of anticoagulants; Z79.890 Hormone replacement therapy; Z79.899 Other long term (current) drug therapy; Z87.891 Personal history of nicotine dependence
CPT/HCPCS: 36561; 71045; 77001; J7120

== ENCOUNTER 2022-02-20 11:53 | Day surgery (SDC) | payer MEDICARE, OTHER, SELFPAY ==
[2022-02-19 08:59] VITALS: BMI 21.1
[2022-02-20] VITALS (7 sets, daily range): BP systolic 80–97; BP diastolic 38–66; PULSE 70–90; RESP 16–20; TEMP 36.6–36.8; O2SAT 95–100; BMI 20.5
[2022-02-20] MEDS: Cefazolin 2 GM in 0.9% Normal Saline 100 ML IV (13:00)
--- NOTE | 2022-02-20 13:23 | HP.PCM_ITS ---
History and Physical Date of Admission: 02/20/22 History and Physical Date of Admission: 02/15/22 Date of Service:? 02/12/22#:[id number] Acct:[id number] Name:SCOTTY ANGEL Rep #:[id number] :1960 ProviderDrHenrik Luna MD Age/Sex:? 61/F Location: [facility] [place] Status: Signed Intake Vital Signs ?? 02/12/2209:56 Height? 5 ft 1 in Weight:? 112 lb BMI? 21.1 BP? 90/56 L Blood Pressure Location? Rt brachial Position? Sitting Respiration? 16 Pulse? 69 Pulse Source? Monitor Temp? 97.2 F L Temp Source? Temporal Pulse Oximetry (%)? 97 Oxygen Delivery Method? 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 Purification Required: No Accompanied by: Allergies No Known Allergies Allergy (Verified 02/13/22 11:20) Medications acetaminophen 325 mg tablet (Tylenol) 650 mg PO Q6H PRN Pain 10/26/21 [History Confirmed 02/13/22] albuterol sulfate 90 mcg/actuation aerosol inhaler 2 puff inhalation Q6H PRN Dyspnea 10/26/21 [History Confirmed 02/13/22] epoprostenol 1.5 mg intravenous solution (Veletri) 1.5 mg continuous IV infusion DAILY PULMONARY HTN 10/26/21 [History Confirmed 02/13/22] ferrous sulfate 324 mg (65 mg iron) tablet,delayed release 324 mg PO DAILY 10/26/21 [History Confirmed 02/13/22] ibandronate 150 mg tablet 150 mg PO QMONTH 10/26/21 [History Confirmed 02/13/22] levothyroxine 75 mcg tablet (Synthroid) 75 mcg PO DAILY 10/26/21 [History Confirmed 02/13/22] ondansetron HCl 4 mg tablet 4 mg PO Q8H PRN Nausea And Vomiting 10/26/21 [History Confirmed 02/13/22] oxygen-air delivery systems? 10/26/21 [History Confirmed 02/12/22] potassium chloride 20 mEq tablet,extended release 20 meq PO BID 10/26/21 [History Confirmed 02/13/22] torsemide 20 mg tablet 20 mg PO DAILY 10/26/21 [History Confirmed 02/13/22] sertraline 50 mg tablet 50 mg PO DAILY 12/31/21 [History Confirmed 02/13/22] amitriptyline 25 mg tablet 25 mg PO PRN PRN Sleep 01/07/22 [History Confirmed 02/13/22] oxycodone 5 mg tablet 5 mg PO Q6H PRN Pain 01/07/22 [History Confirmed 02/13/22] methocarbamol 500 mg tablet 500 mg PO TID 02/13/22 [History Confirmed 02/13/22] PFSH Medical History?(Updated 02/13/22 @ 17:[address] Sohail Raza MD) Acute hypotension Alcohol use Anxiety and depression Arthritis Chronic back pain Chronic cough Chronic fatigue COPD (chronic obstructive pulmonary disease) with emphysema Easy bruising Former smoker, stopped smoking many years ago HFrEF (heart failure with reduced ejection fraction) History of echocardiogram History of pain when walking History of stress test Hospice care patient HPTH (hyperparathyroidism) Hyperthyroidism Low iron Marijuana use Menopause On home oxygen therapy Pancreatitis, acute Pre-transplant evaluation for lung transplant Primary pulmonary hypertension (PPH) Pulmonary hypertension Rash Raynauds disease Shortness of breath on exertion Vulvar lesion Wears dentures Wears glasses Wears hearing aid Surgical History? History of biopsy History of section History of cholecystectomy History of dilation and curettage History of tooth extraction Family History? Mother Small cell lung cancerFather Lung cancer Social History? Smoking Status:? Former smoker quit date: 11/14/20 Tobacco: How many years used:? 30 how long ago did patient quit smoking:? 1 year alcohol intake:? never substance use type:? does not use HPI HPI HPI: SCOTTY SEWELL, is a 61 F who presents to the office today for Port placement for vulvar cancer.? Pt has had a beltran catheter for last 26 years mostly RIJ until the last one for her pulmonary HTN medication infusion.? Pt has poor peripheral veins. Plan to start chemo, next friday. ROS General General: Yes weight change and fatigue; No appetite, colon cancer or breast cancer HEENT HEENT: No difficulty swallowing, eye injury, eye surgery, swollen glands or hoarseness Endo Endocrine: Yes thyroid disease; No diabetes mellitus, thyroid cancer, Hair loss, heat intolerance or cold intole sherrell Skin Skin: Yes rash; No changing moles Musc Musculoskeletal: Yes back problems and arthritis; No rheumatoid arthritis, gout or joint pain Cardio Cardiovascular: No murmur, pacemaker, heart disease, atrial fibrillation, high blood pressure, heart attack, heart stent, palpitations, shortness of breat with exertion or chest pain Psych Psychiatric: No depression, anxiety or hearing voices Resp Respiratory: Yes shortness of breath, No sleep apnea, No cough, Yes COPD, No asthma, No emphysema and No wheezing Gastro Gastrointestinal: No abdominal pain, No nausea or vomiting, Yes diarrhea, No constipation, No blood in stool, No acid reflux, No hemorrhoids, No ulcers, No gallbladder problem and No black,tarry stools Edi Hematologic: No blood thinners, No blood disorders, No bleeding, No anemia and No blood clots Neuro Neurologic: No confusion Exam Const General: cooperative, healthy appearing and no acute distress [facility] Head: normal to inspection Chest Other: Left chest beltran catheter in place--well healed previous incisions/scars to right chest. Resp Effort & Inspection: normal respiratory effort Cardio Rate: regular rate GI Inspection: non-distended Palpation: soft, no guarding, no hernias and nontender Skin General: no rashes or lesions noted Neuro General: patient oriented x3 Extrem General: clubbing Psych Affect: normal affect Assessment and Plan Assessment and Plan (1) Encounter for insertion of venous access port: ?Status:?Acute (2) Primary vulvar cancer: ?Status:?Acute ?Comment: Vulvar cancer diagnosed with at at least FIGO stage II (cT2 N0 M0) SCC of the vulva? S/P biopsy at [facility] on 02/04/2022. Discussed disease status, treatment with Cisplatin weekly with Radiation since she cannot have surgery. Also discussed risks, benefits and side effects. She agrees to proceed. (3) Primary pulmonary hypertension (PPH): ?Status:?Acute Plan Due to patient's primary pulmonary hypertension she has had multiple Beltran catheters over the last 26 years most of been on the right this time they did switch to the left IJ. I have discussed above with the patient- Port-a-Cath placement.? Right IJ Patient has been counseled as to the risks/benefits of the procedure. I have explained the risks of the surgery, including but not limited to: infection, bleeding, injury to any blood vessels/nerves, injury to lungs (such as pneumothorax or hemothorax and need for chest tube), not having any access, nonfunctioning of port due to thrombosis, infection of port, etc.? the patient understands and agrees to proceed. I have answered all the patient's questions to the patient?s satisfaction and the patient has no further questions. Brandy Luna M.D. Pager: [phone] [facility] [address] [place] [address], [facility], [address] [place] [address] Office: [phone] Coding Level of Care Code Off vis,new,level 3 Diagnoses Encounter for insertion of venous access port? Z45.2 Primary vulvar cancer? C51.9 Primary pulmonary hypertension (PPH)? I27.0 02/14/22 1558 <Electronically signed by Brandy Luna MD> Date Brandy Luna MD 02/15/22 1213 <Electronically signed by Brandy Luna MD> Cosigner Signature (if applicable): ? CC:? Dr. Dante Starr MD; Dr. Brandy Luna MD~ Signed ADDENDUM by Dr. Brandy Luna MD on 02/15/22 at 1250 Addendum I have re-examined the patient. There are no clinical changes since date of exam. 02/15/22 1250<Electronically signed by Brandy Luna MD> Cosigner Signature (if applicable):? cc:? Dr. Dante Starr MD; Dr. Brandy Luna MD ~* Signed
--- NOTE | 2022-02-20 15:33 | PCM.OPRPT ---
Report of Operation Date of Procedure: 02/20/22 Pre-Operative Diagnosis: z45.2, Vulvar cancer Post-Operative Diagnosis: Same Surgery/Procedure Performed:: Placement of left Brachial arm port Surgeon: Brandy Luna Type of Anesthesia: Local MAC Anesthesiologist: Nadeem Das Special Medications: Ancef 2 g IV x1 Estimated Blood Loss (mL): minimal Description of Procedure: Please see Dr. Garcia's op note for access to the left brachial vein. A wire was then threaded into the angiocath and this was visualized under fluoroscopy to ensure that the wire was in the left left subclavian. Once this was done, then the needle trocar was removed. The dilator with the introducer sheath attached was then placed over the wire into the left brachial vein via the Seldinger technique and this was visualized under fluoroscopy. The dilator and sheath were in proper position as visualized by fluoroscopy. A subcutaneous pocket was then created distal to the catheter insertion site. A transverse skin incision was made after the skin and subcutaneous tissues were infiltrated with local anesthetic. Blunt dissection was then used to create a space large enough for placement of the subcutaneous port. The catheter was then tunneled into the subcutaneous pocket. The wire and dilator were then removed. The catheter was then threaded into the introducer sheath and was positioned with its tip at the junction of the subclavian and superior vena cava as visualized under fluoroscopy?as to avoid the Carrero catheter. The excess catheter was transected. The catheter was then attached to the subcutaneous port using manufacturers guidelines. The catheter was flushed with a heparin saline mixture prior to placement. Hemostasis was carefully controlled with pressure. The port was sutured to the subcutaneous fascia using 2-0 Vicryl suture. The port was then placed in the subcutaneous pocket. The incision were reapproximated with interrupted subdermal 3-0 vicryl sutures. The skin was reapproximated with 3-0 nylon suture in a interrupted fashion. A pressure dressing with sterile opsite was applied. The patient tolerated the procedure well. Grafts/Implants Used: XCELA power injectable port 6.6 Fr REF [id number] Lot [id number] Complications none
--- NOTE | 2022-02-20 15:37 | DCINST_ITS ---
Discharge Instructions Procedure Port-A-Cath Diet Discharge Diet: Light diet - advance as tolerated Activity May shower in (days): 5 (Keep port site clean and dry x5 days. okay to tape off port site with a Ziploc bag to shower) Lifting Restrictions: No lifting > 15 pounds for 3 days with the arm on the left arm Dressing / Incision Call your doctor if your incision/area has: Continuous Slow Oozing, Sudden Increased Bleeding, Increased Pain/ Swelling, Increased Redness, Foul Smelling Discharge and Swelling at the incision site Call your doctor if you observe: Fever of 101 or Higher Change Dressing in: 2 days Follow Up Care Please Follow Up With: Brandy Luna MD When: In 10 days for permanent suture removal?call office for appointment Test Results: Test results from this visit will be discussed in further detail at your follow- up appointment, if applicable. Discharge Plan Admission Attending Provider: Brandy Luna Primary Care Provider: Dante Starr Consulting Providers: Levi Garcia Discharge Orders/Prescriptions Prescriptions: New rivaroxaban 10 mg tablet MDD 10 mg PO daily 0RF Continued sertraline 50 mg tablet 50 mg PO DAILY amitriptyline 25 mg tablet 25 mg PO PRN PRN (Reason: Sleep) oxycodone 5 mg tablet 5 mg PO Q6H PRN (Reason: Pain) albuterol sulfate 90 mcg/actuation Hfa Aerosol Inhaler 2 puff INHALATION Q6H PRN (Reason: Dyspnea) (DME) oxygen-air delivery systems Device MISCELLANEOUS acetaminophen [Tylenol] 325 mg Tablet 650 mg PO Q6H PRN (Reason: Pain) torsemide 20 mg Tablet 20 mg PO DAILY ondansetron HCl 4 mg Tablet 4 mg PO Q8H PRN (Reason: Nausea And Vomiting) levothyroxine [Synthroid] 75 mcg Tablet 75 mcg PO DAILY ibandronate 150 mg Tablet 150 mg PO QMONTH ferrous sulfate 324 mg (65 mg iron) Tablet,Delayed Release (Dr/Ec) 324 mg PO DAILY epoprostenol [Veletri] 1.5 mg Recon Soln 1.5 mg CONTINUOUS IV INFUSION DAILY potassium chloride 20 mEq Tablet Extended Release 20 meq PO BID methocarbamol 500 mg Tablet 500 mg PO TID diazepam 5 mg tablet 1 tab PO DAILY PRN (Reason: Anxiety) Label Comments: TAKE 1 TABLET BY MOUTH DAILY BEFORE RADIATION THERAPY (TAKE 30 TO 60 MINUTES BEFORE APPOINTMENT) DO NOT DRIVE FOR 4 HOURS AFTER DOSE Referrals / Follow Up: Dante Starr MD [Primary Care Provider] - Levi Garcia MD [Med Staff - Active Staff] - (call for appt in 1 week) Disposition Disposition (needs filled in before D/C Order can be placed): Home, Self Care
[2022-02-20] MEDS: oxyCODONE 5 MG Tablet 10 MG PO (15:52)
--- NOTE | 2022-02-20 15:53 | SUR.PHASEI ---
PER MD PT CAN EAT AND DRINK, OR [employer]FFICIENT FOR PLACEMENT VERIFICATION PER MD VERBALIZATION.
[2022-02-20] MEDS: Lactated Ringers 1,000 ML 999 ML IV (16:52)
--- NOTE | 2022-02-27 15:55 | PCM.OPRPT ---
Report of Operation Date of Procedure: 02/20/22 Pre-Operative Diagnosis: Right innominate vein occlusion, need for medport Post-Operative Diagnosis: same Surgery/Procedure Performed:: right upper extremity venogram Description of Surgical Findings:: total occlusion of right innominate vein Surgeon: Levi Garcia Type of Anesthesia: Local MAC Estimated Blood Loss (mL): 5 ml Description of Procedure: HPI: Patient is a 61-year-old female with a longstanding history of pulmonary hypertension who currently has a left IJ tunneled catheter. She recently has been diagnosed with vulvar cancer and is in need of a Mediport placement. Previous efforts to access the right IJ and right subclavian veins were unsuccessful due to some element of innominate vein occlusive process. Patient is taken to the Health Physics Technician now for right upper extremity venography with attempt to cross innominate vein occlusion in efforts to place a right chest wall Mediport or right upper extremity Mediport. Case was done in conjunction with Dr. Luna who will place the Mediport if able to cross the venous occlusion. Secondary plan is for left arm Mediport with fluoroscopic assistance to avoid disrupting the existing catheter. Description of procedure: Upon obtaining form consent and verification correct patient procedure and site the patient was taken to the Health Physics Technician where she was positioned prepped and draped in usual sterile fashion. Timeout was performed and conscious sedation was administered by anesthesia. Under ultrasound guidance the right brachial vein was accessed with a micropuncture needle and wire and this was then exchanged out for micropuncture sheath. Through this right upper extremity venogram was performed which confirmed patent brachial axillary and subclavian vein with abrupt occlusion of the superior aspect of the innominate vein. There did appear to be a short segment of the innominate that was patent given the potential starting point to cross the occlusion. Through the micropuncture sheath a stiff Glidewire was advanced and the micropuncture sheath exchanged out for a KMP catheter. Using the catheter and the Glidewire we engaged the occlusion and initially made some progress crossing the lesion. We are unable to fully traverse into patent vena cava so this point the patient was heparinized and the catheter exchanged for a 6 [place] sheath that was advanced just proximal to the occlusion. The KMP catheter was then readvanced over the Glidewire and further efforts made to traverse the occlusion. Ultimately we were unsuccessful and after exhausting reasonable efforts we decided to abort the procedure with regards to crossing the venous occlusion. The wire catheter and sheath were withdrawn and manual pressure held for 10 minutes after which aspect hemostasis was noted. Next the patient was reprepped on the left upper extremity and redraped. Under ultrasound guidance the left brachial vein was accessed in the mid upper arm using micropuncture needle and wire. This was then exchanged for a micropuncture sheath through which a central venogram of the left upper extremity was performed revealing patent axillary subclavian vein. At this point Dr. Luna performed the Mediport placement which she will dictate separately. Complications None
== END 2022-02-20 17:24 | disposition home or self-care (01) ==
LOC: SDC 11:54 → AC 11:56
PROVIDERS: PCP Internal Medicine; Referring Provider Surgery; Visit Provider Surgery
DX: Z45.2 Encounter for adjustment and management of vascular access device (principal); C51.9 Malignant neoplasm of vulva, unspecified; I82.290 Acute embolism and thrombosis of other thoracic veins; Z53.09 Procedure and treatment not carried out because of other contraindication; I50.22 Chronic systolic (congestive) heart failure; I27.0 Primary pulmonary hypertension; J44.9 Chronic obstructive pulmonary disease, unspecified; Z79.890 Hormone replacement therapy; Z87.891 Personal history of nicotine dependence
CPT/HCPCS: 00532; 36571; 76937; 77001; 77386; J7040; J7120; Q9967; C1769; C1773; C1887; C1894

== ENCOUNTER → 2022-03-06 | Outpatient (CLI) | payer MEDICARE, OTHER, SELFPAY ==
--- NOTE | 2022-03-06 10:26 | US_ITS ---
INDICATION: ACUTE HEPATITIS -- LIVER AND BILIARY TREE EXAMINATION: Ultrasound US Abdomen Limited (quadrant) TECHNIQUE: Portillo scale imaging with graded compression and color doppler was obtained of the right lower quadrant. COMPARISON: CT scan obtained on 01/10/2022. FINDINGS: LIVER: There is increased heterogeneous echogenicity of the liver visualized. No focal hepatic lesion. Multiple linear anechoic areas visualized within the liver consistent with prominent biliary radicals. The portal vein is patent with unremarkable flow. The hepatic veins patent with unremarkable flow seen. The liver measures 17.7 cm. GALLBLADDER AND BILIARY TREE: The gallbladder is not visualized. The proximal common bile duct measures 0.7 cm, which is within normal limits for the patient''s age. PANCREAS: The pancreas demonstrates increased echogenicity with scattered hyperechoic foci/pancreatic calcifications seen, largest calcification measuring 0.9 x 1.1 x 0.7 cm. Prominence of the main pancreatic duct visualized measuring 0.6 cm. Focal abnormality is demonstrated in the pancreas. No pancreatic ductal dilatation. The right kidney demonstrates unremarkable echogenicity, unremarkable vascularity no evidence of right renal masses. Mild prominence of the calyces is seen but no evidence of hydronephrosis. The right kidney measures 9.4 x 5.5 x 4.7 cm. The right renal cortex measures 1.1 cm. US/Liver IMPRESSION: Intrahepatic biliary ductal dilatation. Pancreatic calcifications and pancreatic ductal dilatation seen. Electronically Signed: Nigel Kwok MD at 16:01 EDT ,
== END | disposition home or self-care (01) ==
PROVIDERS: PCP Internal Medicine; Referring Provider Internal Medicine Hematology & Oncology; Visit Provider Internal Medicine Hematology & Oncology
DX: B17.9 Acute viral hepatitis, unspecified (principal)
CPT/HCPCS: 76705; 77386; J7040; A4216

== ENCOUNTER 2022-03-08 16:38 | Emergency (ER) | payer MEDICARE, OTHER, SELFPAY ==
[2022-03-08 16:39] VITALS: BP 81/56; PULSE 65; RESP 16; TEMP 36.4; O2SAT 99; BMI 21.5
[2022-03-08 16:47] VITALS: BP 96/67; PULSE 73; RESP 10; TEMP 35.8; O2SAT 96
[2022-03-08 16:52] VITALS: O2SAT 99
[2022-03-08 18:58] LABS: Absolute Lymphocyte Count 0.35 X10^3/uL (0.83-4.51); Absolute Neutrophil Count 2.8 X10^3/uL (2.0-7.7); Basophil# 0.03 X10^3/uL; Basophil% 0.8 % (0-1); Eosinophil# 0.45 X10^3/uL; Eosinophils% 11.9 % (0-5); Hematocrit 34.5 % (37-47); Hemoglobin 10.4 g/dL (12.0-15.0); Lymphocyte # 0.35 X10^3/ul (0.83-4.51); Lymphocyte % 9.2 % (19-41); Mean Corp Hgb Conc 30.1 g/dL (32-36); Mean Corpuscular Hgb 25.7 pg (27.0-32.0); Mean Corpuscular Volume 85.4 fL (81-99); Monocyte# 0.18 X10^3/uL; Monocyte% 4.7 % (0-10); NRBC Flagged by Analyzer 0 % (0-5); Neutrophil # 2.76 X10^3/uL (2.7-7.7); Neutrophil % 72.9 % (47-70); POSITIVE COUNT YES; POSITIVE DIFFERENTIAL YES; RBC Distribution Width CV 19.8 % (11.6-14.6); RBC Distribution Width SD 58.1 fl (35.1-43.9); Red Blood Count 4.04 M/mm3 (4.2-5.4); White Blood Count 3.8 K/mm3 (4.4-11.0)
[2022-03-08 19:00] LABS: International Normalized Ratio 2.9; Prothrombin Time (Protime)PT. 30.1 SECONDS (11.7-14.9)
[2022-03-08 19:01] LABS: Partial Thromboplast Time 55.8 Seconds (24.1-36.2)
[2022-03-08 19:13] VITALS: BP 105/64; PULSE 65; RESP 14; TEMP 36.3; O2SAT 95
[2022-03-08 19:17] LABS: AST(SGOT) 53 U/L (15-37); Alanine Aminotransfer ALT/SGPT 281 U/L (13-56); Albumin, Serum 3.2 g/dL (3.2-5.0); Alkaline Phosphatase 151 U/L (45-117); Anion Gap 7 (5-15); BUN 7 mg/dL (7-18); BUN/Creat Ratio 8.7 RATIO (10-20); Bilirubin, Direct 0.19 mg/dL (0.00-0.30); Calcium,Total 9.1 mg/dL (8.5-10.1); Chloride 108 mmol/L (98-107); EST Glomerular Filtration Rate 76 mL/min (>60); Est Glom Filt Rate - Afr Amer 92 mL/min (>60); Estimated Creatinine Clearance 54.31 ml/min; Globulin 4.1 g/dL (2.2-4.2); Glucose 76 mg/dL (74-106); Lipase 111 U/L (73-393); Magnesium 1.6 mg/dL (1.6-2.6); Protein, Total 7.3 g/dL (6.4-8.2); Sodium Level 140 mmol/L (136-145)
[2022-03-08 19:59] LABS: Differential Indicated SCAN CRITERIA MET; Platelet Count 36 K/mm3 (150-450)
[2022-03-08 20:25] LABS: Differential Comment SCANNED
[2022-03-08 21:22] VITALS: RESP 16
--- NOTE | 2022-03-08 21:29 | EX.ED.DYSGE1 ---
HPI History of Present Illness Chief Complaint: Abn Labs Informant: patient Narrative Narrative: Patient is a 61-year-old female with complex medical history including pancytopenia, vulvar cancer currently undergoing radiation therapy (has not been able to start chemotherapy because of her thrombocytopenia) and primary pulmonary hypertension on continuous infusion of Veletri presenting with abnormal labs. Patient had appointment with Dr. Burgess today for an acute transaminitis and was found to have worsening thrombocytopenia with platelets of 34,000, INR of 3.2 now and hypotension. Patient denies any bleeding. She has downtrending LFTs. She has chronic hypotension and denies any lightheadedness. Patient has no acute complaints at this time but only came to the emergency room because she was instructed to by her doctor. [facility] Medical History Acute hypotension Alcohol use Anxiety and depression Arthritis Chronic back pain Chronic cough Chronic fatigue COPD (chronic obstructive pulmonary disease) with emphysema Easy bruising Encounter for chemotherapy management Encounter for education Former smoker, stopped smoking many years ago HFrEF (heart failure with reduced ejection fraction) History of echocardiogram History of pain when walking History of stress test Hospice care patient HPTH (hyperparathyroidism) Hyperthyroidism Hypotension Hypoxia Low iron Marijuana use Menopause On home oxygen therapy Pancreatitis, acute Pancytopenia Pre-transplant evaluation for lung transplant Primary pulmonary hypertension (PPH) Pulmonary hypertension Rash Raynauds disease Shortness of breath on exertion Vulvar lesion Wears dentures Wears glasses Wears hearing aid Home Medications acetaminophen 325 mg tablet (Tylenol) 650 mg PO Q6H PRN Pain 10/26/21 [History Last Taken Unknown] albuterol sulfate 90 mcg/actuation aerosol inhaler 2 puff inhalation Q6H PRN Dyspnea 10/26/21 [History Last Taken Unknown] epoprostenol 1.5 mg intravenous solution (Veletri) 1.5 mg continuous IV infusion DAILY PULMONARY HTN 10/26/21 [History Last Taken Unknown] ferrous sulfate 324 mg (65 mg iron) tablet,delayed release 324 mg PO DAILY 10/26/21 [History Last Taken Unknown] levothyroxine 75 mcg tablet (Synthroid) 75 mcg PO DAILY 10/26/21 [History Last Taken Unknown] oxygen-air delivery systems 10/26/21 [History Last Taken 02/15/22] potassium chloride 20 mEq tablet,extended release 20 meq PO BID 10/26/21 [History Last Taken Unknown] torsemide 20 mg tablet 20 mg PO DAILY 10/26/21 [History Last Taken Unknown] sertraline 50 mg tablet 50 mg PO DAILY 12/31/21 [History Last Taken Unknown] amitriptyline 25 mg tablet 25 mg PO PRN PRN Sleep 01/07/22 [History Last Taken Unknown] lidocaine-prilocaine 2.5 %-2.5 % topical cream 1 applic topical ONCE PRN port access 30 days #30 grams 02/25/22 [Rx Last Taken Unknown] oxycodone 5 mg tablet 10 mg PO Q4H PRN Pain 02/28/22 [History Last Taken Unknown] Allergy/AdvReac Type Severity Reaction Status Date / Time No Known Allergies Allergy Verified 03/08/22 16:57 Family History Mother Small cell lung cancer Father Lung cancer Surgical History History of biopsy History of section History of cholecystectomy History of dilation and curettage History of tooth extraction Hx of surgical procedure Surgical procedure, elective Social History Smoking Status: Former smoker quit date: 11/14/20 Tobacco: How many years used: 30 how long ago did patient quit smokin year alcohol intake: never substance use type: does not use ROS ROS ED Constitutional Constitutional ED: Denies chills or fever(s) Eyes Eyes: Denies change in vision ENT ENT ED: Reports other Details: no gum bleeding ; Denies rhinorrhea or sore throat Cardiovascular Cardiovascular: Denies chest pain or palpitations Respiratory/Chest Respiratory/Chest: Reports cough, dyspnea, dyspnea on exertion and other Details: chronic Gastrointestinal Gastrointestinal: Denies abdominal pain, nausea or vomiting Genitourinary Genitourinary ED: Denies dysuria or hematuria Musculoskeletal Musculoskeletal: Denies arthralgias or myalgias Integumentary Reports other Details: Skin irritation of the vulva from her radiation ; Denies rash Neurologic Neurologic: Denies headache(s) or weakness Psychiatric Psychiatric: Denies anxiety or depression Hematologic/Lymphatic Hematologic/Lymphatic: Reports easy bleeding and easy bruising EXAM Physical Exam Const Vital Signs: 03/08/22 16:39 03/08/22 16:47 03/08/22 16:52 Temperature 97.5 F L 96.5 F L Temperature Source Temporal Temporal Pulse Rate 65 73 Respiratory Rate 16 10 L Respiratory Effort Normal Non-Labored Respiratory Pattern Normal Blood Pressure 81/56 L 96/67 Blood Pressure Mean 64 76 Pulse Ox 99 96 Oxygen Delivery Method Room Air Nasal Cannula Oxygen Flow Rate (L/min) 3 03/08/22 16:52 03/08/22 19:13 03/08/22 21:22 Temperature 97.3 F L Temperature Source Temporal Pulse Rate 65 Respiratory Rate 14 16 Respiratory Effort Respiratory Pattern Blood Pressure 105/64 Blood Pressure Mean 77 Pulse Ox 99 95 Oxygen Delivery Method Nasal Cannula Room Air Oxygen Flow Rate (L/min) 3 Positive well nourished and well developed General Appearance ED: well developed and NAD HEENT Reports moist mucous membranes Negative for trauma Eyes PERRL and EOMs intact bilaterally Neck supple and no JVD Chest Wall inspection of chest normal and palpation of chest normal Resp normal respiratory effort Effort and Inspection: Negative for retractions Auscultation: Negative for rhonchi or wheezes Cardio regular rate, regular rhythm and no murmurs GI normal to inspection, nondistended, normoactive bowel sounds Back/Spine no CVA tenderness Extremity normal to inspection General Extremety ED: Negative for edema or tenderness General Extremity: Negative for edema Neuro oriented x3 and no sensory deficits noted Sensorium / Orientation: alert Motor Exam: strength 5/5 throughout; Negative for general weakness Psych mental status grossly normal Skin no rashes or lesions noted and no wounds MDM MDM MDM Narrative Medical decision making narrative: Patient is evaluated for worsening coagulopathy and thrombocytopenia. She has no active bleeding. She has known pancytopenia which is being monitored. She also has a history of hypotension. Patient is normotensive while in the emergency room. She has no acute complaints. Labs are rechecked which are stable. Platelet count is above 20,000 I do not think she requires platelet transfusion at this time given that she is not having any active bleeding. Case is discussed with oncology nurse practitioner, Claudine Ely, who is familiar with the patient. She feels that given that she is not having any active bleeding no acute intervention is needed. Patient will be seen on Friday (3 days from now). Patient is already off of her Eliquis due to her thrombocytopenia. Patient will be discharged home. She is counseled that should she have any falls or develop spontaneous bleeding she needs to return to the emergency room. Patient and spouse verbalized agreement understand this plan. Patient discharged home in stable condition. Lab Data Attestation: I reviewed the patient's lab results. Labs: Laboratory Results - last 24 hr 03/08/22 03/08/22 03/08/22 17:40 17:40 17:40 WBC 3.8 L RBC 4.04 L Hgb 10.4 L Hct 34.5 L MCV 85.4 MCH 25.7 L MCHC 30.1 L RDW Std Deviation 58.1 H RDW Coeff of [place] 19.8 H Plt Count 36 L* MPV TNP Immature Gran % (Auto) 0.500 Neut % (Auto) 72.9 H Lymph % (Auto) 9.2 L [place] % (Auto) 4.7 Eos % (Auto) 11.9 H Baso % (Auto) 0.8 Absolute Neuts (auto) 2.8 Absolute Lymphs (auto) 0.35 L Nucleated RBC % 0 Differential Comment SCANNED Diff Path Review November foll PT 30.1 H INR 2.9 APTT 55.8 H Sodium 140 Potassium 3.0 L Chloride 108 H Carbon Dioxide 25.0 Anion Gap 7 BUN 7 Creatinine 0.80 Estim Creat Clear Calc 54.31 Est GFR (MDRD) Af Amer 92 Est GFR (MDRD) Non-Af 76 BUN/Creatinine Ratio 8.7 L Glucose 76 Calcium 9.1 Magnesium 1.6 Total Bilirubin 0.50 Direct Bilirubin 0.19 AST 53 H ALT 281 H Alkaline Phosphatase 151 H Total Protein 7.3 Albumin 3.2 Globulin 4.1 Lipase 111 Discharge Plan Triage Chief Complaint: Abn Labs ED Provider: Sammi Suero Dx/Rx/DC Orders Clinical Impression: Pancytopenia, Hypotension Instructions: Thrombocytopenia Prescriptions: No Action sertraline 50 mg tablet 50 mg PO DAILY amitriptyline 25 mg tablet 25 mg PO PRN PRN (Reason: Sleep) oxycodone 5 mg tablet 10 mg PO Q4H PRN (Reason: Pain) lidocaine-prilocaine 2.5-2.5 % cream 1 applic topical ONCE PRN (Reason: port access) 30 Days Qty: 30 2RF albuterol sulfate 90 mcg/actuation Hfa Aerosol Inhaler 2 puff INHALATION Q6H PRN (Reason: Dyspnea) (DME) oxygen-air delivery systems Device MISCELLANEOUS acetaminophen [Tylenol] 325 mg Tablet 650 mg PO Q6H PRN (Reason: Pain) torsemide 20 mg Tablet 20 mg PO DAILY levothyroxine [Synthroid] 75 mcg Tablet 75 mcg PO DAILY ferrous sulfate 324 mg (65 mg iron) Tablet,Delayed Release (Dr/Ec) 324 mg PO DAILY epoprostenol [Veletri] 1.5 mg Recon Soln 1.5 mg CONTINUOUS IV INFUSION DAILY potassium chloride 20 mEq Tablet Extended Release 20 meq PO BID Primary Care Provider: Dante Starr Referrals: Dante Starr MD [Primary Care Provider] - Activity Restrictions/Additional Instructions: Platelets are low but is stable. If you have any bleeding, have any injuries or fall/hit your head please return to our emergency room or the closest ER. At this time we think that you are stable to follow-up with your oncologist on Friday. Disposition Disposition: Home, Self Care Discharge Date/Time: 03/08/22 21:39
[2022-03-12 08:51] LABS: Pathologist Review Reviewed
== END 2022-03-08 21:39 | disposition home or self-care (01) ==
PROVIDERS: Emergency Provider Emergency Medicine; PCP Internal Medicine; Visit Provider Emergency Medicine
DX: D61.818 Other pancytopenia (principal); J43.9 Emphysema, unspecified; I50.22 Chronic systolic (congestive) heart failure; I27.0 Primary pulmonary hypertension; C51.9 Malignant neoplasm of vulva, unspecified; D69.49 Other primary thrombocytopenia; I95.9 Hypotension, unspecified; M54.9 Dorsalgia, unspecified; Z99.81 Dependence on supplemental oxygen; Z79.890 Hormone replacement therapy; Z79.899 Other long term (current) drug therapy; Z78.0 Asymptomatic menopausal state; Z87.891 Personal history of nicotine dependence; B17.9 Acute viral hepatitis, unspecified
CPT/HCPCS: 36591; 77386; 80048; 80053; 80074; 80076; 82140; 82164; 82390; 82525; 82728; 83010; 83036; 83516; 83615; 83690; 83735; 85025; 85610; 85652; 85730; 86140; 86225; 86235; 86256; 86703; 99283; J7040; A4216

== ENCOUNTER → 2023-01-22 | Day surgery (SDC) | payer MEDICARE, OTHER, SELFPAY ==
[2023-01-22 07:48] LABS: Anion Gap 4 (5-15); BUN 12 mg/dL (7-18); BUN/Creat Ratio 13.9 RATIO (10-20); Chloride 112 mmol/L (98-107); Creatinine, Serum 0.86 mg/dL (0.55-1.02); EST Glomerular Filtration Rate 70 mL/min (>60); Est Glom Filt Rate - Afr Amer 85 mL/min (>60); Estimated Creatinine Clearance 44.19 ml/min; Glucose 76 mg/dL (74-106); Potassium 3.2 mmol/L (3.5-5.1); Sodium Level 136 mmol/L (136-145)
--- NOTE | 2023-01-22 09:25 | PCM.OPRPT ---
Report of Operation Date of Procedure: 01/22/23 Pre-Operative Diagnosis: prior left upper extremity med-port Post-Operative Diagnosis: same Surgery/Procedure Performed:: removal med-port Surgeon: Levi Garcia Type of Anesthesia: Local and Sedation,Conscious Estimated Blood Loss (mL): 10 Description of Procedure: HPI: Patient is a 62-year-old female who previously had a left upper arm bed port placed he also has a tunneled left IJ catheter for continuous infusion of medications for her pulmonary hypertension. Given the proximity of the arm Mediport to the infusion catheter is requested that the port be removed under fluoroscopic guidance. She is taken now for elective port removal. Description of procedure: Upon obtaining form consent and verification correct patient procedure site patient taken to the [facility] where she was positioned prepped and draped in usual sterile fashion. Timeout was performed and conscious sedation administered with Versed and fentanyl. Skin was anesthetized 1% lidocaine and transverse incision made cephalad to the port. Bovie cautery was used to dissect down through the subcutaneous tissue and held retractors utilized to maximize visualization. Dissection was then carried to the catheter portion of the port which was dissected free circumferentially and soft tissue released with sharp dissection. The catheter was then grasped with a hemostat and fluoroscopy used to visualize the central venous system while catheter was extracted. There is no disruption of the tunneled infusion catheter during port catheter removal. The tract of the port catheter was then oversewn with silk [id number] suture. Next further dissection was used to open the capsule surrounding the med port and this was then removed intact. The capsule was then excised along the deep aspect of the pocket. The superficial aspect was very shallow and at the dermis so this was not attempted to be removed. The incision was inspected for hemostasis and then closed with 3-0 Vicryl followed by 4-0 nylon interrupted for the skin. Patient was awake from sedation and taken to the recovery room before discharged home.
== END | disposition home or self-care (01) ==
LOC: CLSP 07:13
PROVIDERS: PCP Internal Medicine; Referring Provider Surgery Trauma Surgery; Visit Provider Surgery Trauma Surgery
DX: Z45.2 Encounter for adjustment and management of vascular access device (principal); J43.9 Emphysema, unspecified; I27.20 Pulmonary hypertension, unspecified; I50.22 Chronic systolic (congestive) heart failure; E03.9 Hypothyroidism, unspecified; Z87.891 Personal history of nicotine dependence; Z95.828 Presence of other vascular implants and grafts
CPT/HCPCS: 36415; 36589; 80048; 85027; 99152; 99153; J7040